=== PATIENT | female | born 1970 | race American Indian/Alaskan Native ===

== ENCOUNTER 2017-05-15 11:59 | Outpatient (CLI) | payer OTHER ==
[2017-05-15 12:33] LABS: Blood Urea Nitrogen 29 mg/dL (7-17)
[2017-05-15] MEDS ORDERED: NACL ONE (12:56)
--- NOTE | 2017-05-15 13:31 | Cat Scan Report ---
CTA chest: PE protocol. History: Shortness of breath. Findings: No evidence of aortic aneurysm or pulmonary embolism. No mediastinal mass. No pleural pericardial effusion. Normal lung parenchyma. No consolidation or nodularity. Impression: No evidence of acute pulmonary embolism. No acute lung changes.
== END 2017-05-15 12:00 | disposition home or self-care (01) ==
LOC: CT 11:59
PROVIDERS: ATTEND Radiology Diagnostic Radiology
DX: I87.322 Chronic venous hypertension (idiopathic) with inflammation of left lower extremity (principal); I80.292 Phlebitis and thrombophlebitis of other deep vessels of left lower extremity; R06.02 Shortness of breath; D68.9 Coagulation defect, unspecified; M79.605 Pain in left leg; R00.8 Other abnormalities of heart beat
CPT/HCPCS: 36415; 71275; 82565; 84520; Q9967